=== PATIENT | female | born 2000 | race African-American/Black ===

== ENCOUNTER 2020-04-27 00:28 | Emergency (ER) | payer SELFPAY ==
[~2020-04-27] VITALS: Ht 162.6 cm; Wt 76.0 kg
[2020-04-27 00:31] VITALS: BP 114/75
== END 2020-04-27 01:50 | disposition home or self-care (01) ==
LOC: ER 00:28
DX: H10.9 Unspecified conjunctivitis (principal)
CPT/HCPCS: 99283